=== PATIENT | female | born 1985 | race Caucasian/White ===

== ENCOUNTER 2022-03-19 13:25 | Outpatient (CLI) | payer MEDICAID, SELFPAY ==
[2022-03-19 13:29] VITALS: PULSE 100; O2SAT 97
[2022-03-19 13:34] VITALS: PULSE 89; O2SAT 97
[2022-03-19 13:39] VITALS: PULSE 78; O2SAT 97
[2022-03-19 13:42] VITALS: BP 121/63; PULSE 82
[2022-03-19 13:44] VITALS: TEMP 37.5
--- NOTE | 2022-03-19 16:48 | PC.OBNST ---
NST Note NST Note Start: 03/19/22 16:07 Freq: Status: Active Protocol: Document 03/19/22 16:47 MOSQUE (Rec: 03/19/22 16:48 MOSQUE [id number]) NST Note 3 Para (# of births) 2 EDC 03/17/22 Gestational Age In Weeks & Days 40 Weeks & 2 Days Patient Presented with Complaint(s) of Contractions/cramping Reactive Yes Appropriate for Gestational Age Yes LELO Arredondo Date 03/19/22 Reactive Yes Appropriate for Gestational Age Yes LELO Koehler Date 03/19/22 OB NST charge Yes Complete NST Note via Write Note Yes The provider's electronic signature indicates the NST is reactive/appropriate for gestational age. *Note to provider: If an addendum is required, open the patient's chart and click on the note under the Nurse/Allied Health tab.
== END 2022-03-19 16:49 | disposition home or self-care (01) ==
LOC: OB OUT 13:27 → OB 13:28
PROVIDERS: PCP Family Medicine; Visit Provider Family Medicine
DX: O47.1 False labor at or after 37 completed weeks of gestation (principal); Z3A.40 40 weeks gestation of pregnancy
CPT/HCPCS: 59025; 99213

== ENCOUNTER 2022-03-21 22:20 | Inpatient (IN) | payer OTHER, SELFPAY ==
--- NOTE | 2022-03-21 22:46 | P.OBHP_ITS ---
OB - H&P: HPI Labor/Induction History of Present Illness Time Seen by Provider: 22:42 Date Seen: 03/21/22 Chief Complaint: The patient is a 5 year old 2 para at 40 4/7 weeks gestation by LMP c/w 12wk US, who presents with SROM at home immediately prior to presenting to hospital. Chief complaint: SROM : 3 Para: 2 Date of last menstrual period: 06/10/21 Estimated date of delivery: 03/17/22 Gestational age based on last menstrual period: 40 Narrative: Nelsy Zarate is a 37 year old female at 40 4/7 weeks gestation by LMP c/w 12wk US, who presents with SROM at home immediately prior to presenting to hospital. Pt had voided and was up walking and says she felt a pop and could tell was not urine and felt like water broke around 10pm. Clear fluids light pink tinge. As walked, more fluid. Has had intermittent contractions for last several day. Hx of precipatous delivery and reports typically she is fairly comfortable in labor until baby is coming out. She is feeling contractions but would not have come in if water had not broke and she knew her hx fast labor. contractions are increasing while here. No recent illness. No headaches or vision changes. Good FM. 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 ) complications comment: Breech until 35+wks, cephalic since 02/22/22 visit Narrative: +covid at 5wks gestation 'felt like the flu' per pt. Labs Blood type: B (+) positive Rubella: immune RPR/VDLR: nonreactive GBS status: positive HBsAG: negative Meds Home Medications and Allergies Home Medications Medication Instructions Recorded Confirmed Type PNV no.151-iron 27 mg-folic 800 1 cap PO DAILY 01/31/22 03/19/22 History mcg-omega3 260 [id number]-fish capsule ( Multi-DHA (with vitamin K)) ferrous gluconate 324 mg (37.5 mg 324 mg PO QDAY 01/31/22 03/19/22 History iron) tablet Allergies Allergy/AdvReac Type Severity Reaction Status Date / Time No Known Drug Allergies Allergy Verified 01/31/22 10:40 OB - H&P: Exam Constitutional: Constitutional: no acute distress Routine HEENT Exam: Head: Present atraumatic, normal inspection and normocephalic Eye: Present normal appearance ENT: Present mucous membranes moist Routine Respiratory Exam: Respiratory: Present CTA bilaterally; Absent crackles, rales, rhonchi or wheezes Routine Cardiovascular Exam: Cardiovascular: RRR Detailed Labor and Delivery Exam: Patient Gravid: yes Dilation (cm): 7 Effacement (%): 70 Contraction frequency (min): 3 Comments: cervical exam is per nurse as documented above. Head felt on exam. Fetus (Single): Station: -1 Amniotic Membrane Status: SROM Amniotic Membrane Fluid Description: Clear Heart Rate Baseline: 130 Monitor Accelerations: Present Monitor Decelerations: None Equipment Hire Manager Variability: Moderate (6-25) Routine Extremities Exam: Extremities: Absent pedal edema Routine Psychiatric Exam: Present normal affect, normal thought process and cooperative OB - Problem Based A/P Additional Plan (1) SROM (spontaneous rupture of membranes): Status: Acute (2) Active labor: Status: Acute (3) Term : Status: Acute Plan pt in active labor. +GBS, abxs being started. Pt declines pitocin at delivery unless having increased bleeding. this has been discussed in the clinic multiple times and she is aware pitocin is standard of care and reasons for it and increased risk bleeding and retained placenta and she would like to wait on using pitocin after delivery unless bleeding more then expected. She confirmed this desire today as well. Delivery/Labor/Induction Plan Plan: expectant management
[2022-03-21] MEDS: LACTATED RINGERS 1000 ML 1,000 ML 125 ML IV (22:51)
[2022-03-21] MEDS: AMPICILLIN 2 GM in 0.9 % SODIUM CHLORIDE Mini-bag 100 ML IVPB (22:51)
[2022-03-21 22:55] VITALS: BP 172/89; PULSE 109
[2022-03-21 23:08] LABS: SARS PCR* Negative SARS-CoV-2 (Negative)
[2022-03-21 23:11] VITALS: BP 162/88; PULSE 89
[2022-03-21 23:15] VITALS: BMI 29.8
[2022-03-21 23:29] VITALS: BP 148/93; PULSE 83
[2022-03-21 23:30] VITALS: BP 142/87; PULSE 77
--- NOTE | 2022-03-21 23:43 | PM.OBPNL ---
Subjective Time Seen by Provider: 23:43 Date Seen: 03/21/22 Narrative: RN notified me of 2 elevated bp's about 12 min apart at 179/89 and 162/88. Rechecked again 10min later while sitting on birthing ball and 148/93, 142/87. pt reports had contraction right around this time. She does not have history gestatioal htn or preeclampsia in prior or this . Objective Vital Signs: Last Vital Signs Pulse 77 03/21/22 23:30 BP 142/87 H 03/21/22 23:30 Comments: appears more uncomfortable with contractions, breathing through them. comfortable between Contractions Contraction pattern: Regular Assessment Assessment: active labor Station: -1 Amniotic Membrane Status: SROM Heart Rate Baseline: 130 Monitor Accelerations: Present Monitor Decelerations: None Plan Plan: Reviewed elevated bp's and need to assess for preeclampsia/gestational htn and complications of these. First two bp's were in severe range but she just arrived recently and was standing and then yue. On recheck not in severe range. will plan check preeclamptic labs and monitor bp's for now. All ?'s answered.
[2022-03-21 23:57] LABS: Hematocrit 37.7 % (33.0-51.0); Hemoglobin* 12.9 gm/dL (12.0-16.0); Mean Corpuscular HGB Conc 34 gm/dL (32-36); Mean Corpuscular Hemoglobin 32 pg (26-34); Mean Corpuscular Volume 94 fL (80-100); Platelet Count* 264 K/uL (140-440); White Blood Count* 9.05 K/uL (4.50-11.00)
[2022-03-22] VITALS (15 sets, daily range): BP systolic 115–164; BP diastolic 68–86; PULSE 70–96; RESP 16; TEMP 36.6–36.8; O2SAT 96–98
[2022-03-22 00:03] LABS: Slide Review Reflex No
[2022-03-22 00:13] LABS: Aspartate Amino Transferase* 29 U/L (12-35); Creatinine* 0.5 mg/dL (0.5-1.5); Est. Creatinine Clearance* 124.21; Estimated Glomerular Filt Rate 125 ml/min
[2022-03-22 00:14] LABS: Alanine Aminotransferase* 24 U/L (4-35)
[2022-03-22 01:12] LABS: Total Protein Urine 17 mg/dL
[2022-03-22 01:14] LABS: Creatinine Urine 14.1 mg/dL
[2022-03-22] MEDS: AMPICILLIN 1 GM in 0.9 % SODIUM CHLORIDE Mini-bag 100 ML IVPB (02:57)
[2022-03-22] MEDS: LIDOCAINE 1% MDV 20 ML INJECTION (03:56)
--- NOTE | 2022-03-22 05:14 | P.OBPRC_ITS ---
Procedure Delivery date: 03/22/22 Procedure Done: [employer] Procedure Details: The patient is a 37 year-old admitted on 03/21/21 at 40 Weeks, 4 Days gestation for SROM at home around 852pm.? Cervical exam on admission was 7 cm/70 % effaced/-1 station with membranes ruptured in vertex presentation.? Contractions were every 3 minutes.? heart rate demonstrated baseline 130 bpm with moderate variability, + accelerations, - decelerations; a category 1 tracing.? SROM pt reports occurred at 852pm at home with clear fluid. she prseented to labor and delivery around 10:30pm. ? Labor Analgesia:? None ? Pitocin:? No ? Labor onset:? 2051 ? Complete:? 308 ? Pushing:? 308 ? heart tones during second stage were 100-130. Pt was pushing and delivered from hands and knees position. ? At 0312 a viable female delivered in vertex presentation over intact perineum via spontaneous vaginal delivery.?There was nuchal cord x 1 delivered through. Infant was placed on bed for parents to see as mom was in hands and knees position. Delayed cord clamping performed and as starting process to cut cord placenta delivered spontaneously at 0317. ? Cord was clamped and cut.? Nose and mouth were bulb suctioned.? weight pending.? 8 at 1 minute and 9 at 5 minutes.? Shoulder dystocia: no.? Nuchal cord: yes. ? Placenta delivered spontaneously and complete at 0317 with a 3 vessel cord. Of note, no pitocin was given at delivery of shoulder as pt declined pitocin. see hpi and record. ? Mother and were stable after delivery. ? Lacerations:? midline second degree with extension into labia, repaired with 3-0 vicryl after anesthesia with lidocaine. Periurethral superficial lacerations, hemostatic and not repaired. ? Blood loss:300 mL total. Blood loss measurement type: [QBL] ? Sponge and needles counts are correct. Y Events: Other (pt had elevated bp's in labor, preeclamptic labs normal. ) Intrapartal Events: None and Other (known GBS positive, recieved antibiotics for >4 hours prior to delivery) Delivery monitor: external FHT Route of delivery: Laceration description: Perineal - 2nd Degree Delivery repair: Vicryl Estimated blood loss (mL): 300 Anesthesia type: Local [place] Infant Gender: Female presentation: vertex Placental Delivery Description: Spontaneous Cord Description: 3 Vessels and Nuchal Cord total score - 1 minute: 8 total score - 5 minute: 9
[2022-03-23 01:05] VITALS: BP 111/67; PULSE 62; RESP 16; TEMP 36.8; O2SAT 97
--- NOTE | 2022-03-23 07:06 | P.OBPN_ITS ---
OB - PN:Subj Subjective Time Seen by Provider: 07:06 Date Seen: 03/23/22 Patient comments OB post-: no complaints, pain well controlled and tolerating diet [place] infant status: and doing well [place] feeding status: exclusively OB - PN: Obj Exam Physical Exam: Vital signs: Temp Pulse Resp BP Pulse Ox O2 Del Method 98.3 F 62 16 111/67 97 03/23/22 01:05 03/23/22 01:05 03/23/22 01:05 03/23/22 01:05 03/23/22 01:05 03/23/22 01:05 Constitutional: Constitutional: no acute distress and cooperative Routine HEENT Exam: Head: Present normal inspection Eye: Present normal appearance ENT: Present mucous membranes moist Routine Abdominal Exam: Fundus: Present firm Routine Neurological Exam: Neurological: Present alert OB - PN: A/P Vaginal Delivery Assessment and Plan (1) SROM (spontaneous rupture of membranes): Status: Acute (2) Active labor: Status: Acute (3) Term : Status: Acute Plan Plan: routine care Comments: doing well. plan home later today or tomorrow
[2022-03-23 07:11] LABS: Hemoglobin* 11.8 gm/dL (12.0-16.0)
[2022-03-23 09:30] VITALS: BP 111/84; PULSE 62; RESP 16; O2SAT 97
[2022-03-23 17:09] VITALS: BP 118/82; PULSE 62; RESP 16; O2SAT 97
[2022-03-23 23:30] VITALS: BP 124/77; PULSE 55; RESP 16; TEMP 36.6; O2SAT 97
--- NOTE | 2022-03-24 06:50 | PM.OBDSVD1 ---
DS: Providers Provider Time Seen by Provider: 06:50 Date Seen: 03/24/22 Date of admission: 03/21/22 22:20 Primary care physician: Sameera Perez DO Admitting Clinician: Sameera Perez DO Attending Physician on discharge: Sameera Perez DO Date of Discharge: 03/24/22 DS: Diagnosis Discharge Diagnosis (1) (normal spontaneous vaginal delivery): Status: Acute Problem details: Has had routine course. going well. Mild lochia. No concerns. Expected course and warning s/s reviewed. Mild impetigo face, mupiricin ointment, Handwashing. Avoid kissing baby until completely resolved. (2) Term : Status: Acute Exam Const: Vital Signs, click to edit/add: Vital Signs - 24 hr 03/23/22 09:30 03/23/22 17:09 03/23/22 23:30 Temperature 98 F Pulse Rate [Pulse Oximeter] 62 62 55 L Respiratory Rate 16 16 16 Blood Pressure [Ri ght Arm] 111/84 118/82 124/77 Pulse Oximetry 97 97 97 Oxygen Delivery Me thod Room Air Room Air Room Air Documenting provider has reviewed patient's vital signs: yes Common normals: no apparent distress, oriented x3 and healthy appearing General appearance: cooperative and comfortable Orientation/consciousness: Yes awake : Uterus: U/U and firm Uterus palpation: uterus nontender Neuro: Common normals: oriented x3 Sensorium/orientation: awake Psych: Common normals: mental status grossly normal, thought process normal, cooperative and affect normal Thought process: normal thought process Insight: insight good Judgement: judgment good Skin: Narrative: +mild impetigo skin around mouth OB - DS: Summary Hospital Course Hospital Course: The patient is a 37 year old G 3 P 2 at 40 4/7 weeks gestation that was admitted to the Center on 03/21/22 for SROM/active labor. She had an uncomplicated vaginal delivery. She delivered a viable female . She is breast feeding. the patient has done well. Peripartum Data delivery method: Vaginal Laceration description: Perineal - 2nd Degree complications: none Infant Gender: Female Infant Discharge Plan: Home Time Spent with Patient Time attestation: Total time spent providing and/or coordinating discharge services: Time spent: Less than 30 minutes Discharge Plan Discharge Disposition: Home, Self-Care Date of Admission: 03/21/22 22:20 Attending Provider on Discharge: Sameera Perez Primary Care Provider: Sameera Perez Condition: Stable Anticipated Discharge Date/Time: 03/24/22 10:00 Discharge Medications: New acetaminophen 500 mg Tablet 1,000 mg PO Q6H PRNQty: 90 0RF docusate sodium 100 mg Capsule 100 mg PO DAILY Qty: 60 0RF ibuprofen 200 mg Tablet 600 mg PO Q6H PRNQty: 60 0RF Continued Multi-DHA(with vit K) 27 mg iron-800 mcg-260 mg capsule 1 cap PO DAILY ferrous gluconate 324 mg (37.5 mg iron) tablet 324 mg PO QDAY Discharge Orders: Discharge Order (Routine); Ordered 03/24/22 Ordered By: Sameera Perez Patient Education: OB Vaginal/Breast Feeding Activity Level: Activity as Tolerated Activity Detail: pelvic rest x 6 weeks Discharge Diet: Regular Follow Up Appointments: Sameera Perez, DO [Primary Care Provider] - (6wk visit. Will touch base at baby followup next week as well) Forms: MyHealth Info Instructions
[2022-03-24 09:02] VITALS: BP 123/77; PULSE 82; RESP 16; TEMP 36.6; O2SAT 97
== END 2022-03-24 12:10 | disposition home or self-care (01) | DRG 807 ==
LOC: OB OUT 03-22 00:19 → OB 03-22 00:19
PROVIDERS: Admitting Provider Family Medicine; PCP Family Medicine; Visit Provider Family Medicine
DX: O99.824 Streptococcus B carrier state complicating childbirth (principal); Z37.0 Single live birth; O13.4 Gestational [pregnancy-induced] hypertension without significant proteinuria, complicating childbirth; O70.1 Second degree perineal laceration during delivery; L01.00 Impetigo, unspecified; Z3A.40 40 weeks gestation of pregnancy
CPT/HCPCS: 36415; 82565; 82570; 84156; 84450; 84460; 85018; 85027; 87635; J0290; J7120